=== PATIENT | female | born 1990 | race Two or more races ===

== ENCOUNTER → 2023-06-02 | Emergency (ER) | payer SELFPAY ==
[~2023-06-02] VITALS: Ht 167.6 cm; Wt 68.0 kg
[~2023-06-02] MED LIST: CEPH500T PO
[2023-06-02 13:36] VITALS: BP 146/98; TEMP 98.2
[2023-06-02 16:23] LABS: APPEARANCE,URINE CLEAR (CLEAR); BILIRUBIN,URINE NEGATIVE (NEGATIVE); BLOOD, URINE 1+ Ery/uL (NEGATIVE); COLOR,URINE YELLOW (YELLOW); KETONES,URINE NEGATIVE (NEGATIVE); LEUKOCYTE ESTERASE ,URINE 2+ (NEGATIVE); NITRITE, URINE POSITIVE (NEGATIVE); PH,URINE 7.5 (5.0-8.0); PROTEIN,URINE TRACE mg/dl (NEGATIVE); UGLUCOSE TRACE mg/dL (NEGATIVE)
[2023-06-02 16:29] LABS: PREGNANCY TEST URINE QUAL NEGATIVE (NEGATIVE)
[2023-06-02 16:43] VITALS: O2SAT 100
[2023-06-02 16:53] LABS: ADD URINE CULTURE YES; BACTERIA,URINE Few /HPF (None Seen)
== END | disposition home or self-care (01) ==
LOC: ER 13:30
DX: N39.0 Urinary tract infection, site not specified (principal); R10.2 Pelvic and perineal pain; Z88.8 Allergy status to other drugs, medicaments and biological substances
CPT/HCPCS: 81001; 84703-TC; 87086-TC